=== PATIENT | female | born 1990 | race Caucasian/White ===

== ENCOUNTER 2023-01-10 01:05 | Emergency (ER) | payer OTHER ==
[~2023-01-10] VITALS: Ht 162.6 cm; Wt 77.1 kg
[2023-01-10 01:09] VITALS: BP 126/76; PULSE 85; RESP 16; TEMP 97.8; O2SAT 99
[2023-01-10 03:05] VITALS: BP 126/76; PULSE 85; RESP 16; TEMP 97.8; O2SAT 99
== END 2023-01-10 03:05 | disposition left against medical advice (07) ==
LOC: MED 01:05
DX: F10.129 Alcohol abuse with intoxication, unspecified (principal); Y90.9 Presence of alcohol in blood, level not specified; V49.9XXA Car occupant (driver) (passenger) injured in unspecified traffic accident, initial encounter; Y93.89 Activity, other specified; Y92.410 Unspecified street and highway as the place of occurrence of the external cause; Y99.8 Other external cause status
CPT/HCPCS: 70450; 81025; 99284